=== PATIENT | male | born 1995 | race Caucasian/White ===

== ENCOUNTER 2018-01-09 09:14 | Emergency (ER) | END 2018-01-09 11:37 | disposition home or self-care (01) ==

== ENCOUNTER 2018-02-12 22:12 | Emergency (ER) | payer OTHER ==
[~2018-02-12] VITALS: Ht 165.1 cm; Wt 87.4 kg
[~2018-02-12 22:12] MED LIST: ACET500C5 PO; CEPH-443 PO; FAMO-96 PO; IBUP-1541 PO; ONDA4TAB8 PO
[2018-02-12 22:13] VITALS: BP 142/77; PULSE 105; RESP 20; Ht 165.1 cm; Wt 87.4 kg
[2018-02-12] MEDS ORDERED: ONDANSETRON (ODT) 4 MG TAB ODT STA (22:28)
--- NOTE | 2018-02-12 22:31 | ERD ---
ER Documentation Chief Complaint Chief Complaint RUQ AP/loss of appetite/n/v/LEGGETT x1 yr, worse today HPI 22-year-old male presents here to emergency department for complaints of right upper quadrant abdominal pain this been going on and off for the last 1 year, worse tonight, tonight started to have nausea vomiting, complains of pain sharp pain, 6/10 scale, not better or worse with anything. Patient denies any fever or chills, denies any flank pain. Patient denies any diarrhea or constipation. ROS All systems reviewed and are negative except as per history of present illness. Medications Home Meds Active Scripts Acetaminophen* (Tylophen*) 500 Mg Capsule, 1 CAP PO Q6H PRN for PAIN AND OR ELEVATED TEMP, #20 CAP Prov:SANDEEP NEAL-C 01/09/18 Famotidine* (Pepcid*) 20 Mg Tablet, 20 MG PO BID for 10 Days, TAB Prov:SANDEEP NEAL-C 01/09/18 Ondansetron Hcl* (Zofran*) 4 Mg Tablet, 4 MG PO Q6H for NAUSEA AND/OR VOMITING, #30 TAB Prov:SANDEEP NEAL-C 01/09/18 Ibuprofen* (Ibuprofen*) 400 Mg Tablet, 400 MG PO Q6H PRN for PAIN for 5 Days, TAB Prov:GREG,JAVIER C 06/19/15 Cephalexin* (Keflex*) 500 Mg Capsule, 500 MG PO QID for 7 Days, CAP Prov:GREG,JAVIER C 06/19/15 Allergies Allergies: Coded Allergies: No Known Allergy (Unverified , 01/09/18) PMhx/Soc Medical and Surgical Hx: pt denies Medical Hx, pt denies Surgical Hx Hx Alcohol Use: Yes (12 beers/week) Hx Substance Use: Yes (marijuana vape daily/ crystal meth occassional last few days ago) Hx Tobacco Use: Yes (6cig/day) Smoking Status: Current every day smoker FmHx Family History: No diabetes, No coronary disease, No other Physical Exam Vitals Vital Signs Date Temp Pulse Resp B/P (MAP) Pulse Ox O2 O2 Flow FiO2 Time Delivery Rate 02/12/18 97.4 105 20 142/77 100 22:13 (98) Physical Exam GENERAL: The patient is well developed and appropriate for usual state of health, in no apparent distress. CHEST: Clear to auscultation bilaterally. There are no rales, wheezes or rhonchi. HEART: Regular rate and rhythm. No murmurs, clicks, rubs or gallops. No S3 or S4. ABDOMEN: Soft, nontender and nondistended. Good bowel sounds. No rebound or guarding. No gross peritonitis. No gross organomegaly or masses. No Pandya sign or McBurney point tenderness. BACK: No midline or flank tenderness. EXTREMITIES: Equal pulses bilaterally. There is no peripheral clubbing, cyanosis or edema. No focal swelling or erythema. Full range of motion. Grossly neurovascularly intact. NEURO: Alert and oriented. Cranial nerves 2-12 intact. Motor strength in all 4 extremities with 5/5 strength. Sensation grossly intact. Normal speech and gait. SKIN: There is no apparent rash or petechia. The skin is warm and dry. HEMATOLOGIC AND LYMPHATIC: There is no evidence of excessive bruising or lymphedema. No gross cervical, axillary, or inguinal lymphadenopathy. Result Diagram: 02/12/18223502/12/182235 Results 24 hrs Laboratory Tests Test 02/12/18 22:36 02/12/18 22:38 White Blood Count 13.5 10^3/ul Red Blood Count 5.46 10^6/ul Hemoglobin 16.0 g/dl Hematocrit 46.0 % Mean Corpuscular Volume 84.2 fl Mean Corpuscular Hemoglobin 29.3 pg Mean Corpuscular Hemoglobin Concent 34.8 g/dl Red Cell Distribution Width 12.6 % Platelet Count 274 10^3/UL Mean Platelet Volume 10.2 fl Immature Granulocytes % 0.400 % Neutrophils % 74.2 % Lymphocytes % 15.3 % Monocytes % 9.6 % Eosinophils % 0.1 % Basophils % 0.4 % Nucleated Red Blood Cells % 0.0 /100WBC Immature Granulocytes # 0.050 10^3/ul Neutrophils # 10.0 10^3/ul Lymphocytes # 2.1 10^3/ul Monocytes # 1.3 10^3/ul Eosinophils # 0.0 10^3/ul Basophils # 0.1 10^3/ul Nucleated Red Blood Cells # 0.0 10^3/ul Sodium Level 139 mmol/L Potassium Level 3.5 mmol/L Chloride Level 104 mmol/L Carbon Dioxide Level 24 mmol/L Anion Gap 11 Blood Urea Nitrogen 11 mg/dl Creatinine 0.94 mg/dl Est Glomerular Filtrat Rate mL/min > 60 mL/min Glucose Level 119 mg/dl Calcium Level 10.1 mg/dl Total Bilirubin 0.7 mg/dl Direct Bilirubin 0.00 mg/dl Indirect Bilirubin 0.7 mg/dl Aspartate Amino Transf (AST/SGOT) 37 IU/L Alanine Aminotransferase (ALT/SGPT) 52 IU/L Alkaline Phosphatase 79 IU/L Total Protein 8.5 g/dl Albumin 5.1 g/dl Globulin 3.40 g/dl Albumin/Globulin Ratio 1.50 Lipase 61 U/L Urine Color YELLOW Urine Clarity CLEAR Urine pH 6.0 Urine Specific [place] 1.023 Urine Ketones NEGATIVE mg/dL Urine Nitrite NEGATIVE mg/dL Urine Bilirubin NEGATIVE mg/dL Urine Urobilinogen 2+ mg/dL Urine Leukocyte Esterase NEGATIVE Maurice/ul Urine Microscopic RBC 0 /HPF Urine Microscopic WBC 0 /HPF Urine Hemoglobin NEGATIVE mg/dL Urine Glucose NEGATIVE mg/dL Urine Total Protein 1+ mg/dl Current Medications Medications Dose Sig/Shani Start Time Status Last (Trade) Ordered Route PRN Stop Time Admin Dose Reason Admin Ondansetron 4 mg ONCE STAT 02/12/18 DC 02/12/18 HCl (Zofran ODT 22:28 02/12/18 22:32 Odt) 22:29 Patient was given Zofran here in the emergency department. After treatment, patient was able to tolerate po fluids here in the emergency department without any vomiting. There is no signs and symptoms of dehydration. PROCEDURE: US Abdomen (right upper quadrant). CLINICAL INDICATION: Abdominal pain. TECHNIQUE: Multiple real-time longitudinal and transverse images of the right upper quadrant of the abdomen were acquired utilizing a curved array transducer. Images were reviewed on a high-resolution PACS workstation. COMPARISON: None FINDINGS: The liver is normal in size and echogenicity without focal mass or intrahepatic biliary dilatation. The gallbladder is normal. There is no pericholecystic fluid or gallbladder wall thickening or gallstones. The sonographic Pandya sign is negative. No intra or extrahepatic biliary dilatation is seen. The common bile duct measures 2.3 mm in maximal dimension. The pancreas is not visualized due to overlying bowel gas. No free fluid is identified. The right kidney measures 10.0 cm in length. There is normal echogenicity within the right kidney. There is no perinephric fluid collection. No hydronephrosis, mass, or calculus is seen. IMPRESSION: 1. The pancreas is not visualized due to overlying bowel gas. Otherwise unremarkable right upper quadrant ultrasound. RPTAT: HFN .Katia Arrington MD, MD Date Time Electronically viewed and signed by .Katia Arrington MD, MD on 02/12/2018 23:38 .N/ CC: JEFFY COE DEPUTY CLERK [phone] Procedures/MDM Medical Decision Making: Symptoms most likely consistent with gastritis, possible viral. There is low suspicion for abdominal emergencies at this time. Patients abdominal exam is normal at this time. Patients radiology exam does not show any abdominal emergencies at this time. There is low suspicion for appendicitis, cholecystitis, abdominal aortic aneurysms or peritonitis at this time. There is low suspicion for sepsis. Patient appears well and is hemodynamically stable. Disposition: Home. Condition: Stable Prescription ranitidine, Mylanta Zofran tramadol Instructions: Patient is advised to take medications as prescribed. Patient is advised to rest, increase fluid intake and do brat diet for next 1-2 days and progress as tolerated. Patient is advised that if symptoms are worse, severe abdominal pain, uncontrolled vomiting, high fever, severe flank pain, worst signs and symptoms, to return to the emergency department immediately. Otherwise, patient can follow up with primary care doctor in 5-7 days. Disclaimer: Inadvertent spelling and grammatical errors are likely due to EHR/dictation software use and do not reflect on the overall quality of patient care. Also, please note that the electronic time recorded on this note does not necessarily reflect the actual time of the patient encounter. Oh Departure Diagnosis: Primary Impression: Abdominal pain Abdominal location: right upper quadrant Qualified Codes: R10.11 - Right upper quadrant pain Condition: Stable Patient Instructions: Abdominal Pain Additional Instructions: Patient is advised to take medications as prescribed. Patient is advised to rest, increase fluid intake and do brat diet for next 1-2 days and progress as tolerated. Patient is advised that if symptoms are worse, severe abdominal pain, uncontrolled vomiting, high fever, severe flank pain, worst signs and symptoms, to return to the emergency department immediately. Otherwise, patient can follow up with primary care doctor in 5-7 days. JEFFY COE NP Feb 12, 2018 22:31
[2018-02-12] MEDS ORDERED: MAG-19 PO (23:44)
[2018-02-12] MEDS ORDERED: RANI150T35 PO (23:44)
[2018-02-12] MEDS ORDERED: TRAM50TA2 PO (23:45)
[2018-02-12] MEDS ORDERED: ONDA4TAB14 PO (23:45)
[2018-02-12] MEDS ORDERED: LIDOCAINE/MYLANTA 40 ML BTL ONE (23:55)
[2018-02-13] MEDS ORDERED: LIDOCAINE/MYLANTA 40 ML BTL PO ONE
== END 2018-02-13 00:02 | disposition home or self-care (01) ==
LOC: FTE 22:12
DX: R10.11 Right upper quadrant pain (principal); F17.210 Nicotine dependence, cigarettes, uncomplicated; R11.2 Nausea with vomiting, unspecified
CPT/HCPCS: 36415; 76705; 80053; 81001; 83690; 85025; Z7502; Z7610

== ENCOUNTER 2018-03-05 13:30 | Emergency (ER) | payer OTHER ==
[~2018-03-05] VITALS: Ht 172.7 cm; Wt 84.0 kg
[~2018-03-05 13:30] MED LIST changes: +MAG-19 PO; +ONDA4TAB14 PO; +RANI150T35 PO; +TRAM50TA2 PO
[2018-03-05 13:49] VITALS: Ht 172.7 cm; Wt 84.0 kg
[2018-03-05] MEDS ORDERED: ONDANSETRON 4 MG INJ IV STA (14:37)
[2018-03-05] MEDS ORDERED: SOD CHLORIDE 0.9% 1,000 ML IV STA (14:37)
[2018-03-05] MEDS ORDERED: LORAZEPAM 2 MG INJ IV ONE ×2 (15:00→18:30)
--- NOTE | 2018-03-05 18:16 | ERD ---
ER Documentation Chief Complaint Chief Complaint PRESENTS WITH ANXIETY REPORTS RUQ PAIN, HX OF SIMILAR WITH NO FINDINGS HPI This is a 22-year-old male that presents to the emergency department stating he is feeling very anxious. The patient is complaining of right upper quadrant pain. The patient states that he utilizes crystal meth in the past 24 hours. He states he has not been able to eat or drink for 2 days as he is felt very anxious. He states right upper quadrant pain is a dull aching sensation, 4 out of 10 in intensity. He was seen on February 12, 2017 roughly 20 days ago for the same complaint. He had an ultrasound performed of his gallbladder which was found to be normal. Patient denies any hemoptysis hematemesis or melanotic stools. He has had no fevers or shaking or chills. He denies any chest pain or pressure. He smokes marijuana but denies alcohol use ROS All systems reviewed and are negative except as per history of present illness. Medications Home Meds Active Scripts Tramadol HCl (Tramadol HCl) 50 Mg Tablet, 50 MG PO Q6 PRN for SEVERE PAIN LEVEL 7-10, #10 TAB Prov:JEFFY COE NP 02/12/18 Ondansetron (Ondansetron Odt) 4 Mg Tab.rapdis, 4 MG PO Q6H PRN for NAUSEA AND/OR VOMITING, #20 TAB Prov:JEFFY COE NP 02/12/18 Magaldrate/Simethicone* (Mylanta*) 355 Ml Susp, 30 ML PO QID PRN for GASTROINTESTINAL UPSET, #1 BOTTLE Prov:JEFFY COE NP 02/12/18 Ranitidine Hcl* (Zantac*) 150 Mg Tablet, 150 MG PO BID, #30 TAB Prov:JEFFY COE NP 02/12/18 Acetaminophen* (Tylophen*) 500 Mg Capsule, 1 CAP PO Q6H PRN for PAIN AND OR ELEVATED TEMP, #20 CAP Prov:SANDEEP NEAL PA-C 01/09/18 Famotidine* (Pepcid*) 20 Mg Tablet, 20 MG PO BID for 10 Days, TAB Prov:SANDEEP NEAL PA-C 01/09/18 Ibuprofen* (Ibuprofen*) 400 Mg Tablet, 400 MG PO Q6H PRN for PAIN for 5 Days, TAB Prov:JAVIER GARZA 06/19/15 Discontinued Scripts Ondansetron Hcl* (Zofran*) 4 Mg Tablet, 4 MG PO Q6H for NAUSEA AND/OR VOMITING, #30 TAB Prov:ÁNGELSANDEEP MccrackenCherelle LOPEZ 01/09/18 Cephalexin* (Keflex*) 500 Mg Capsule, 500 MG PO QID for 7 Days, CAP Prov:JAVIER GARZA 06/19/15 Allergies Allergies: Coded Allergies: No Known Allergy (Unverified , 03/05/18) PMhx/Soc History of Surgery: No Hx Psychiatric Problems: Yes (anxiety) Hx Miscellaneous Medical Probl: No Hx Alcohol Use: Yes (12 beers/week) Hx Substance Use: Yes (marijuana vape daily/ crystal meth) Hx Tobacco Use: Yes (6cig/day) Smoking Status: Current every day smoker Physical Exam Vitals Vital Signs Date Temp Pulse Resp B/P (MAP) Pulse Ox O2 O2 Flow FiO2 Time Delivery Rate 03/05/18 110 33 139/82 100 Room Air 14:22 (101) 03/05/18 97.7 127 26 100 13:49 Physical Exam Constitutional:Well-developed. Well-nourished. HEENT:Normocephalic. Atraumatic.Pupils were 5 mm equal round reactive to light. Very dry mucous membranes.No tonsillar exudates. Neck: No nuchal rigidity. No lymphadenopathy. No posterior cervical spine tend erness or step-offs. Respiratory: Not using accessory muscles of respiration.Lungs were clear to aus cultation bilaterally. No rhonchi. No rales. No wheezing. Cardiovascular: Regular rate regular rhythm.No murmurs. No rubs were appreciated.S1, S2 normal. Distal pulses are palpable 2+ bilaterally. GI: Abdomen was soft. Nontender. Non Distended. No pulsatile abdominal masses or bruits. No rebound. No guarding. Bowel sounds were present and normal. Negative Pandya sign. No tenderness the right upper quadrant. No tenderness in the right lower quadrant over McBurney's point. Psoas sign negative. Obturator sign negative. Muscle skeletal: Full range of motion of both the upper and lower extremities bilaterally.Normal muscle tone.No assymetrical calf tenderness or swelling. Skin: No petechia, no purpura. No lesions on the palms or the soles of the feet. No maculopapular rash. NEURO: Patient was alert, awake, orientated x3.No facial droop. Gait observed and normal with no ataxia.Speech had regular rate and rhythm. No focal neurological deficits. Result Diagram: 03/05/18 1451 03/05/18 1451 Results 24 hrs Laboratory Tests Test 03/05/18 14:51 White Blood Count 19.4 10^3/ul Red Blood Count 5.82 10^6/ul Hemoglobin 16.9 g/dl Hematocrit 48.6 % Mean Corpuscular Volume 83.5 fl Mean Corpuscular Hemoglobin 29.0 pg Mean Corpuscular Hemoglobin Concent 34.8 g/dl Red Cell Distribution Width 12.5 % Platelet Count 293 10^3/UL Mean Platelet Volume 11.0 fl Immature Granulocytes % 0.400 % Neutrophils % 77.8 % Lymphocytes % 13.2 % Monocytes % 8.0 % Eosinophils % 0.2 % Basophils % 0.4 % Nucleated Red Blood Cells % 0.0 /100WBC Immature Granulocytes # 0.080 10^3/ul Neutrophils # 15.1 10^3/ul Lymphocytes # 2.6 10^3/ul Monocytes # 1.6 10^3/ul Eosinophils # 0.0 10^3/ul Basophils # 0.1 10^3/ul Nucleated Red Blood Cells # 0.0 10^3/ul Prothrombin Time 13.2 Sec Prothrombin Time Ratio 1.0 INR International Normalized Ratio 0.99 Activated Partial Thromboplast Time 33.2 Sec Sodium Level 142 mmol/L Potassium Level 3.6 mmol/L Chloride Level 103 mmol/L Carbon Dioxide Level 19 mmol/L Anion Gap 20 Blood Urea Nitrogen 17 mg/dl Creatinine 1.15 mg/dl Est Glomerular Filtrat Rate mL/min > 60 mL/min Glucose Level 117 mg/dl Calcium Level 11.1 mg/dl Total Bilirubin 1.4 mg/dl Direct Bilirubin 0.00 mg/dl Indirect Bilirubin 1.4 mg/dl Aspartate Amino Transf (AST/SGOT) 71 IU/L Alanine Aminotransferase (ALT/SGPT) 74 IU/L Alkaline Phosphatase 92 IU/L Troponin I < 0.012 ng/ml Total Protein 10.0 g/dl Albumin 5.8 g/dl Globulin 4.20 g/dl Albumin/Globulin Ratio 1.38 Amylase Level 102 U/L Lipase 107 U/L Ethyl Alcohol Level < 10.0 mg/dl Current Medications Medications Dose Sig/Shani Start Time Status Last (Trade) Ordered Route PRN Stop Time Admin Dose Reason Admin Sodium 1,000 ml @ Q1H STAT 03/05/18 DC 03/05/18 Chloride 1,000 mls/hr IV 14:37 14:57 03/05/18 15:36 Ondansetron 4 mg ONCE STAT 03/05/18 DC 03/05/18 HCl (Zofran IV 14:37 14:58 Inj) 03/05/18 14:41 Lorazepam 1 mg ONCE ONCE 03/05/18 DC 03/05/18 (Ativan) IV 15:00 14:58 03/05/18 15:01 Lorazepam 0.5 mg ONCE ONCE 03/05/18 UNV (Ativan) IV 18:30 03/05/18 18:31 Procedures/MDM The patient presented to the emergency department with right upper quadrant pain. My differential diagnosis included but was not limited to abdominal aortic aneurysm, choledocholithiasis, gallstone ileus, renal colic, pyelonephritis, pancreatitis, peptic ulcer disease, atypical myocardical infarction, mesenteric ischemia, GERD, pulmonary infarction. The patient was placed on a environmental monitoring technician, continuous pulse oximetry and IV access was established by nursing staff. The patient received IV fluids and Ativan as he was feeling anxious. An EKG was obtained to rule out myocardial ischemia. There was no elevation of LFTs to suggest ductal obstruction, cholangitis, cholecystiitis or hepatitis. Urinalysis was not obtained as patient refused to provide a urine sample 12 Lead EKG tracing ordered and reviewed by myself showed: Normal sinus rhythm of 97 bpm and no arrhythmia. MO interval normal. QRS duration normal. No ST segment elevation No ST segment depression. No changes consistent with acute ischemia. Observation Note: Time: 5 hours Family Hx: No Hypertension Evaluation: Multiple exams showed improving symptoms and no evidence of worsening of his symptoms. The patient not suicidal homicidal. The patient was refusing to give a urine drug screen. 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 The patient had leukocytosis. I reviewed the patient's lab work and 20 days ago the patient's white count was 16,000. I did feel this was secondary to an acute stress reaction severe dehydration. Again the patient be given IV fluids. He stated he felt comfortable being discharged home. I did not feel is necessary to obtain a CT scan of the abdomen or repeat ultrasound of the gallbladder as the patient had no peritoneal signs of the abdomen and no tenderness on physical examination of the abdomen. The patient was discharged home in fair condition. They were instructed to return to the emergency department at any time if there was any worsening of their condition. The patient stated they would follow up with their PCP in the n ext 24-48 hours to initiate a suitable medication regimen under the care of their PCP as well as to allow their PCP to monitor any drug reactions. The patient was discharged home with prescriptions after they gave informed consent to the new medication. They were also fully informed by myself on the adverse effects and adverse drug interactions in order to provide adequate safeguards to prevent possible adverse reactions to medications. Departure Diagnosis: Primary Impression: Anxiety attack Additional Impressions: Amphetamine adverse reaction Encounter type: subsequent encounter Qualified Codes: T43.625D - Adverse effect of amphetamines, subsequent encounter Dehydration Condition: Fair ELIANE CHOI MD Mar 05, 2018 18:16
[2018-03-05] MEDS ORDERED: LORAZEPAM 2 MG INJ IM ONE (18:30)
[2018-03-05 18:41] VITALS: BP 131/81; PULSE 99; RESP 20
== END 2018-03-05 18:45 | disposition home or self-care (01) ==
LOC: E/R 13:30
DX: F41.9 Anxiety disorder, unspecified (principal); T43.62 Poisoning by, adverse effect of and underdosing of amphetamines; E86.0 Dehydration; R40.2142 Coma scale, eyes open, spontaneous, at arrival to emergency department; R40.2252 Coma scale, best verbal response, oriented, at arrival to emergency department; R40.2362 Coma scale, best motor response, obeys commands, at arrival to emergency department; F17.210 Nicotine dependence, cigarettes, uncomplicated; R10.11 Right upper quadrant pain
CPT/HCPCS: 36415; 80053; 80307; 82150; 83690; 84484; 85025; 85610; 85730; 93005; 96372; 96374; 96375; J2060; J2405; J7030; Z7502